=== PATIENT | male | born 1995 | race Caucasian/White ===

== ENCOUNTER → 2019-10-05 10:54 | Outpatient (BNVA) | payer SELFPAY | PROVIDERS: Visit Provider Nurse Practitioner | DX: K62.5 Hemorrhage of anus and rectum (principal) | CPT/HCPCS: 85025 ==

== ENCOUNTER → 2019-10-22 11:51 | Outpatient (BNVA) | payer SELFPAY | PROVIDERS: Visit Provider Nurse Practitioner | DX: K62.5 Hemorrhage of anus and rectum (principal) | CPT/HCPCS: 82270 ==

== ENCOUNTER → 2019-11-11 16:55 | Outpatient (BNVA) | payer SELFPAY | PROVIDERS: PCP Nurse Practitioner; Visit Provider Nurse Practitioner | DX: J02.9 Acute pharyngitis, unspecified (principal) | CPT/HCPCS: 87071; 87880 ==

== ENCOUNTER → 2020-06-11 16:40 | Outpatient (BNVA) | payer OTHER, SELFPAY | PROVIDERS: PCP Nurse Practitioner; Visit Provider Nurse Practitioner Family | DX: Z20.828 Contact with and (suspected) exposure to other viral communicable diseases (principal) | CPT/HCPCS: 87635 ==

== ENCOUNTER → 2021-05-19 13:32 | Outpatient (BNVA) | payer OTHER, SELFPAY | PROVIDERS: PCP Nurse Practitioner; Visit Provider Nurse Practitioner Family | DX: Z20.822 Contact with and (suspected) exposure to COVID-19 (principal) | CPT/HCPCS: 87635 ==

== ENCOUNTER → 2021-07-22 13:09 | Outpatient (BNVA) | payer SELFPAY | PROVIDERS: PCP Nurse Practitioner; Visit Provider Nurse Practitioner Family | DX: Z20.822 Contact with and (suspected) exposure to COVID-19 (principal) | CPT/HCPCS: 87635 ==

== ENCOUNTER → 2021-09-25 10:17 | Outpatient (BNVA) | payer SELFPAY | PROVIDERS: PCP Nurse Practitioner; Visit Provider Nurse Practitioner Family | DX: R05.9 Cough, unspecified (principal); Z20.822 Contact with and (suspected) exposure to COVID-19; J06.9 Acute upper respiratory infection, unspecified | CPT/HCPCS: 87400; 87635; 87801 ==

== ENCOUNTER → 2022-05-20 15:22 | Outpatient (BNVA) | payer SELFPAY | PROVIDERS: PCP Nurse Practitioner; Visit Provider Nurse Practitioner | DX: Q45.3 Other congenital malformations of pancreas and pancreatic duct (principal) | CPT/HCPCS: 80053; 82150; 83690; 85025 ==

== ENCOUNTER 2022-09-16 19:18 | Emergency (ER) | payer SELFPAY ==
--- NOTE | 2022-09-16 19:20 | XRR_ITS ---
PROCEDURE INFORMATION: Exam: XR Chest Exam date and time: 09/16/2022 7:27 PM Age: 26 years old Clinical indication: Pain; Chest pressure; Additional info: Cp TECHNIQUE: Imaging protocol: Radiologic exam of the chest. Views: 1 view. COMPARISON: No relevant prior studies available. FINDINGS: Lungs: Lungs are clear bilaterally. Pleural spaces: No pleural effusion. No pneumothorax. Heart/Mediastinum: The cardiac silhouette is mildly enlarged. Moderate hiatal hernia. Mediastinal contours are unremarkable. Bones/joints: Unremarkable for age. XR/XR chest 1V portable [id number] IMPRESSION: 1. No acute cardiopulmonary process. 2. Moderate hiatal hernia. 3. Incidental/nonacute findings are listed in the report.
--- NOTE | 2022-09-16 19:20 | ECG_ITS ---
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
[2022-09-16 19:25] VITALS: BP 128/84; PULSE 73; RESP 20; TEMP 36.7; O2SAT 99; BMI 23.8
--- NOTE | 2022-09-16 19:36 | W.ED.CHESTPA ---
HPI - Chest Pain General: Chief Complaint: Chest Pain Stated Complaint: Chest Pains Time Seen by Provider: 09/16/22 19:35 Source: patient Mode of arrival: ambulatory Limitations: no limitations History of Present Illness: 26-year-old male states he has been having chest pain since 10 AM he states that sharp pain in his left chest worse with movement of his arm and with palpation he denies any shortness of breath denies any diaphoresis states pain is currently a 5 out of 10 he has had no vomiting no cough or fever. Associated symptoms: Deny abdominal pain, dyspnea, fever(s), nausea or vomiting Review of Systems Const: Denies: fever(s), chills, body aches or change in appetite Eyes: Denies: blurry vision or eye discomfort ENMT: Denies: throat pain or dental pain Card: Reports: chest pain Resp: Denies: dyspnea GI: Denies: abdominal pain, nausea, vomiting or diarrhea : Denies: dysuria Musc: Denies: neck pain or back pain Skin/Breast: Denies: rash Neuro: Denies: headache(s) Psych: Denies: depression Lewis/Lymph: Denies: easy bruising All/Imm: Denies: urticaria PFSH ED PFSH: Medical History Pancreas anomaly, congenital Surgical History No history of previous surgery Family History Other Diabetes Hypertension Stroke Denies family history of Cancer Social History Smoking and tobacco status: never smoked Second hand smoke exposure: Yes Smoking risk assessment/counseling performed?: No Alcohol intake: never Desire information about alcohol rehabilitation?: No Counseling given: No Desire information about substance/drug rehabilitation?: No Counseling given: No Adopted: No Caregiver/support person: No Lives independently: Yes Household members: family Housing: House Marital status: Single Number of children: 0 service: No Current occupational status: employed Pets and animals: Yes Pets & animals: cat(s) and dog(s) Current gender identity: Male Physical Exam Const: COMMON NORMALS: no acute distress, patient oriented x3 and healthy appearing HENMT: COMMON NORMALS: normocephalic and atraumatic HEAD & SCALP: normocephalic and atraumatic Eye: COMMON NORMALS: Equal, round and reactive pupils present and EOMs intact bilaterally PUPIL: Yes Equal, round and reactive pupils present Neck/C-Spine: COMMON NORMALS: full ROM and supple Chest: COMMONS NORMALS: normal inspection of the chest OTHER: point tender over left chest reproduces pain Resp: COMMON NORMALS: normal respiratory effort, No retractions, No use of accessory muscles and clear to auscultation bilaterally AUSCULTATION: clear to auscultation bilaterally Cardio: COMMON NORMALS: regular rate, regular rhythm and No murmurs present (Cardio) RATE: regular rate RHYTHM: regular rhythm GI: COMMON NORMALS: Normal to inspection, nondistended, normoactive bowel sounds present, Soft to palpation, non-tender and no masses PALPATION: Yes Soft to palpation Extremity: COMMON NORMALS: normal to inspection and full ROM Neuro: COMMON NORMALS: patient oriented x3, moves all extremities and no focal motor deficits Psych: COMMON NORMALS: mental status grossly normal, Normal thought process present and cooperative THOUGHT PROCESS: Normal thought process present Skin: COMMON NORMALS: no rashes or lesions noted and no wounds GENERAL SKIN EXAM: no rashes or lesions noted Course Vital Signs: Vital signs: Vital Signs Temperature 98.0 F 09/16/22 19:25 Pulse Rate 77 09/16/22 20:00 Respiratory Rate 17 09/16/22 20:00 Blood Pressure 105/78 09/16/22 20:00 Pulse Oximetry 100 09/16/22 20:00 Oxygen Delivery Me thod 09/16/22 20:00 MDM - Chest Pain Medical Decision Making Patient presents for chest pain is likely chest wall pain EKG x-ray and blood work are all normal we will place him on Naprosyn he is stable for discharge he is to follow-up his PCP and return if worsening he understands agrees to plan. Lab Data 09/16/22 19:50 09/16/22 19:50 Radiology Impressions Chest X-Ray 09/16/22 19:20 IMPRESSION: 1. No acute cardiopulmonary process. 2. Moderate hiatal hernia. 3. Incidental/nonacute findings are listed in the report. Laboratory Results WBC 6.5 10^3/uL (4.0-10.0) 09/16/22 19:50 RBC 4.70 10^6/uL (4.1-5.3) 09/16/22 19:50 Hgb 13.5 g/dL (11.7-16.6) 09/16/22 19:50 Hct 41.8 % (42.0-52.0) L 09/16/22 19:50 MCV 88.9 fl (80-94) 09/16/22 19:50 MCH 28.7 pg (28.0-34.0) 09/16/22 19:50 MCHC 32.3 g/dL (30.0-36.0) 09/16/22 19:50 RDW 13.7 % (12.1-15.1) 09/16/22 19:50 Plt Count 282 10^3/cmm (130-400) 09/16/22 19:50 MPV 11.0 fL (7.4-10.4) H 09/16/22 19:50 Neut % (Auto) 58.7 % 09/16/22 19:50 Lymph % (Auto) 30.5 % 09/16/22 19:50 Douglas % (Auto) 9.5 % 09/16/22 19:50 Eos % (Auto) 0.6 % 09/16/22 19:50 Baso % (Auto) 0.5 % 09/16/22 19:50 Neut # (Auto) 3.79 10^3/uL (1.8-7.7) 09/16/22 19:50 Lymph # (Auto) 2.0 10^3/uL (0.8-4.8) 09/16/22 19:50 Douglas # (Auto) 0.6 10^3/uL (0.2-0.9) 09/16/22 19:50 Eos # (Auto) 0.0 10^3/uL (0.0-0.8) 09/16/22 19:50 Baso # (Auto) 0.0 10^3/uL (0.0-0.1) 09/16/22 19:50 Nucleated RBC % (auto) 0 % 09/16/22 19:50 Nucleated RBCs # 0.0 /100WBC 09/16/22 19:50 Sodium 139 mmol/L (136-145) 09/16/22 19:50 Potassium 4.3 mmol/L (3.5-5.1) 09/16/22 19:50 Chloride 102 mmol/L (98-107) 09/16/22 19:50 Carbon Dioxide 27 mmol/L (22-29) 09/16/22 19:50 Anion Gap 14.3 (5-19) 09/16/22 19:50 BUN 13 mg/dL (6-20) 09/16/22 19:50 Creatinine 0.8 mg/dL (0.7-1.2) 09/16/22 19:50 GFR Calculation 116.0 mL/min (90-130) 09/16/22 19:50 Glucose 95 mg/dL (65-115) 09/16/22 19:50 Calculated Osmolality 288 mOsm/kg (285-295) 09/16/22 19:50 Calcium 9.6 mg/dL (8.5-10.5) 09/16/22 19:50 Total Bilirubin 0.4 mg/dL (0.15-1.2) 09/16/22 19:50 AST 10 U/L (0-40) 09/16/22 19:50 ALT 11 U/L (0-41) 09/16/22 19:50 Alkaline Phosphatase 80 U/L (40-130) 09/16/22 19:50 Total Protein 7.9 g/dL (6.6-8.7) 09/16/22 19:50 Albumin 4.7 g/dL (3.5-5.2) 09/16/22 19:50 Globulin 3.2 g/dL (1.3-4.6) 09/16/22 19:50 EKG Data EKG 1: I personally reviewed and interpreted this EKG as follows: EKG interpretation date: 09/16/22 EKG interpretation time: 19:33 Interpretation: nsr hr [address] or twave abnormalities qrs 99 qtc 367 Discharge Plan Discharge Patient Disposition: Home Clinical Impression: Chest pain Condition: Stable Prescriptions: New Naprosyn 500 mg tablet 500 mg PO BID PRN (Reason: pain) Qty: 20 0RF Discharge Orders: Discharge ED (Routine); Ordered 09/16/22 Ordered By: Jake Barros Referrals: Velasquez Barnett, CHAIRMAN AND CEO-C [Primary Care Provider] - 1-3 days Discharge Diet: Advance as tolerated Discharge Activity: Resume usual activity Patient Instructions: Chest Pain (ED) Coding Level of Care Code ED Technical Services Consultant for Debbie Zhou
[2022-09-16 19:59] LABS: Basophils % 0.5 %; Eosinophils % 0.6 %; Hematocrit 41.8 % (42.0-52.0); Hemoglobin 13.5 g/dL (11.7-16.6); Lymphocytes % 30.5 %; Mean Corpuscular HGB Conc 32.3 g/dL (30.0-36.0); Mean Corpuscular Hemoglobin 28.7 pg (28.0-34.0); Mean Corpuscular Volume 88.9 fl (80-94); Monocytes # 0.6 10^3/uL (0.2-0.9); Monocytes % 9.5 %; Neutrophils # 3.79 10^3/uL (1.8-7.7); Neutrophils % 58.7 %; Nucleated Red Blood Cells % 0 %; Platelet Count 282 10^3/cmm (130-400); Red Cell Distribution Width 13.7 % (12.1-15.1); White Blood Count 6.5 10^3/uL (4.0-10.0)
[2022-09-16 20:00] VITALS: BP 105/78; PULSE 77; RESP 17; O2SAT 100
[2022-09-16] MEDS: ketorolac 30 mg/mL INJ IVP (20:10)
[2022-09-16 20:14] LABS: Alanine Aminotransferase 11 U/L (0-41); Albumin Level 4.7 g/dL (3.5-5.2); Alkaline Phosphatase 80 U/L (40-130); Anion Gap 14.3 (5-19); Aspartate Amino Transferase 10 U/L (0-40); Blood Urea Nitrogen 13 mg/dL (6-20); Calcium 9.6 mg/dL (8.5-10.5); Carbon Dioxide 27 mmol/L (22-29); Chloride 102 mmol/L (98-107); Globulin 3.2 g/dL (1.3-4.6); Glucose 95 mg/dL (65-115); Osmolality Calculated 288 mOsm/kg (285-295); Potassium 4.3 mmol/L (3.5-5.1); Sodium 139 mmol/L (136-145); Total Bilirubin 0.4 mg/dL (0.15-1.2); Total Protein 7.9 g/dL (6.6-8.7)
[2022-09-16 20:20] VITALS: BP 112/91; PULSE 81; RESP 17; O2SAT 100
== END 2022-09-16 20:27 | disposition home or self-care (01) ==
PROVIDERS: Emergency Provider Emergency Medicine; PCP Nurse Practitioner
DX: R07.9 Chest pain, unspecified (principal); K44.9 Diaphragmatic hernia without obstruction or gangrene
CPT/HCPCS: 71045; 80053; 85025; 93005; 96374; 99285; J1885

== ENCOUNTER 2023-12-05 12:59 | Emergency (ER) | payer MEDICAID, SELFPAY ==
[2023-12-05 13:17] VITALS: BP 136/94; PULSE 99; RESP 16; TEMP 36.9; O2SAT 99
--- NOTE | 2023-12-05 16:03 | W.ED.HA ---
Documented by User: ZORA Noel 12/05/23 16:16 HPI - Headache General: Chief Complaint: Headache Stated Complaint: Headache Time Seen by Provider: 12/05/23 16:03 Source: patient Mode of arrival: ambulatory Limitations: no limitations History of Present Illness: Patient is a 28-year-old male presents to ED today with complaint of headache over the past 3 to 4 days. Patient states he does have a chronic history of migraines but states he has never had a headache lasting longer than a day and has never had a headache that was not responsive to OTC analgesics. Patient states his headache today feels different than his typical headaches. He has not had any injury or trauma. He feels like headache is worse with light. He states when he gets up and walks around it seems to be worse and rates it at a 6?7/10. Seems to be better with rest. No neck pain. No fevers. He states he was concerned because he got sent home from work on Tuesday due to the headache and feeling dizzy and shaky and weak. Patient does wear glasses. 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 MD elicited complaint: headache Pertinent past history: migraines Onset (ago): day(s) Severity: moderate Pain scale (0-10): 6 Quality & Timing: sharp Exacerbating factors: sitting/standing Relieving factors: rest Associated symptoms: Deny chest pain, confusion, fever(s), malaise, nausea, pre-syncope, rash or syncope Treatments prior to arrival: acetaminophen, ibuprofen and migraine medication Review of Systems Const: Reports: chills; Denies: fever(s), body aches, fatigue or malaise Eyes: Reports: photophobia and other (states he needs new glasses); Denies: change in vision, blurry vision, floaters or seeing flashes ENMT: Denies: nasal discharge or nasal congestion Card: Denies: chest pain, palpitations, syncope or pre-syncope Resp: Denies: dyspnea GI: Denies: abdominal pain or nausea Musc: Denies: neck pain, back pain, extremity pain or joint pain Skin/Breast: Denies: rash Neuro: Reports: headache(s), weakness in extremities and dizziness; Denies: numbness in extremities, sensory changes, lack of coordination, difficulty walking, frequent falls, confusion, behavioral changes, Slurred speech present or seizure-like activity PFSH ED PFSH: Medical History Pancreas anomaly, congenital Surgical History No history of previous surgery Family History Other Diabetes Hypertension Stroke Denies family history of Cancer Social History Smoking and tobacco/nicotine status: never used tobacco/nicotine Second hand smoke exposure: Yes Alcohol intake: never Substance/Drug Use: never Adopted: No Caregiver/support person: No Lives independently: Yes Household members: family Housing: House Marital status: Single Number of children: 0 service: No Current occupational status: employed Pets and animals: Yes Pets & animals: cat(s) and dog(s) Do you think of yourself as: Straight/Heterosexual Current gender identity: Male Physical Exam Const: COMMON NORMALS: no acute distress, average body habitus, patient oriented x3, no limitations, healthy appearing, alert and well nourished HENMT: COMMON NORMALS: normocephalic and atraumatic HEAD & SCALP: normal to inspection, normocephalic and atraumatic FACE & SINUS: normal facial exam and sinuses nontender Eye: COMMON NORMALS: Equal, round and reactive pupils present and EOMs intact bilaterally GENERAL EYE: appearance normal, both eyes and all related structures and normal light reflex PUPIL: Yes Equal, round and reactive pupils present DIRECT OPHTHALMOSCOPY: Yes normal light reflex Neck/C-Spine: COMMON NORMALS: full ROM and no meningeal signs Cardio: COMMON NORMALS: regular rate and regular rhythm RATE: regular rate RHYTHM: regular rhythm Extremity: GENERAL: Yes normal exam except as noted Neuro: CIARA COMA SCALE: document GCS findings [place] coma scale eye opening: Spontaneous Ciara coma scale verbal response: Orientated [place] coma scale motor response: Obey commands [place] coma scale total score: 15 COMMON NORMALS: patient oriented x3, CN's II-XII intact bilaterally, moves all extremities, no focal motor deficits, no sensory deficits noted and gait normal SENSORIUM/ORIENTATION: Yes alert MENINGEAL SIGNS: Yes no meningeal signs Skin: COMMON NORMALS: no rashes or lesions noted GENERAL SKIN EXAM: no rashes or lesions noted Course Vital Signs: Vital signs: Vital Signs Temperature 98.4 F 12/05/23 13:17 Pulse Rate 77 12/05/23 16:39 Respiratory Rate 18 12/05/23 16:39 Blood Pressure 125/90 12/05/23 16:39 Pulse Oximetry 100 12/05/23 16:39 Oxygen Delivery Me thod Room Air 12/05/23 16:39 MDM - Headache Lab Data 12/05/23 16:38 12/05/23 16:[address] 12/05/23 16:10 IMPRESSION: 1. No acute intracranial abnormality. Laboratory Results WBC 3.86 10^3/uL (3.29-11.43) 12/05/23 16:38 RBC 4.74 10^6/uL (3.85-5.65) 12/05/23 16:38 Hgb 14.30 g/dL (11.27-16.99) 12/05/23 16:38 Hct 43.1 % (37-53) 12/05/23 16:38 MCV 90.9 fl (82-101) 12/05/23 16:38 MCH 30.2 pg (27-33) 12/05/23 16:38 MCHC 33.2 g/dL (30-55) 12/05/23 16:38 RDW 12.8 % (12.1-15.1) 12/05/23 16:38 Plt Count 241 10^3/cmm (157-399) 12/05/23 16:38 MPV 10.2 fL (7.4-10.4) 12/05/23 16:38 Neut % (Auto) 52.4 % 12/05/23 16:38 Lymph % (Auto) 28.2 % 12/05/23 16:38 [place] % (Auto) 17.6 % 12/05/23 16:38 Eos % (Auto) 1.0 % 12/05/23 16:38 Baso % (Auto) 0.3 % 12/05/23 16:38 Neut # (Auto) 2.02 10^3/uL (1.8-7.7) 12/05/23 16:38 Lymph # (Auto) 1.1 10^3/uL (0.8-4.8) 12/05/23 16:38 [place] # (Auto) 0.7 10^3/uL (0.2-0.9) 12/05/23 16:38 Eos # (Auto) 0.0 10^3/uL (0.0-0.8) 12/05/23 16:38 Baso # (Auto) 0.0 10^3/uL (0.0-0.1) 12/05/23 16:38 Nucleated RBC % (auto) 0 % 12/05/23 16:38 Nucleated RBCs # 0.0 /100WBC 12/05/23 16:38 Sodium 137 mmol/L (136-145) 12/05/23 16:38 Potassium 4.2 mmol/L (3.5-5.1) 12/05/23 16:38 Chloride 102 mmol/L (98-107) 12/05/23 16:38 Carbon Dioxide 26 mmol/L (22-29) 12/05/23 16:38 Anion Gap 13.2 (5-19) 12/05/23 16:38 BUN 15 mg/dL (6-20) 12/05/23 16:38 Creatinine 0.7 mg/dL (0.7-1.2) 12/05/23 16:38 GFR Calculation 133.3 mL/min (90-130) H 12/05/23 16:38 Glucose 87 mg/dL (65-115) 12/05/23 16:38 Calculated Osmolality 284 mOsm/kg (285-295) L 12/05/23 16:38 Calcium 9.0 mg/dL (8.5-10.5) 12/05/23 16:38 Total Bilirubin 0.2 mg/dL (0.15-1.2) 12/05/23 16:38 AST 42 U/L (0-40) H 12/05/23 16:38 ALT 80 U/L (0-41) H 12/05/23 16:38 Alkaline Phosphatase 124 U/L (40-130) 12/05/23 16:38 Total Protein 8.4 g/dL (6.6-8.7) 12/05/23 16:38 Albumin 4.4 g/dL (3.5-5.2) 12/05/23 16:38 Globulin 4.0 g/dL (1.3-4.6) 12/05/23 16:38 Discharge Plan Discharge Condition: Stable Prescriptions: No Action lidocaine [Hemorrhoidal Relief] 5 % cream 1 applic topical .5 times daily PRN sennosides [senna] 8.6 mg tablet 8.6 mg PO DAILY hydrocortisone [Procto-Med HC] 2.5 % cream with perineal applicator 1 applic MN DAILY PRN (Reason: hemorrhoids) Qty: 30 0RF Referrals: Velasquez Barnett FNP-C [Primary Care Provider] - Sign Out Sign Out Data: Patient Sign Out occurred on 12/05/23 at 17:05. Patient's care was discussed, and care was transferred from ZORA Noel to ZORA Moreno. Coding Level of Care Code ED Welfare Investigator for Chg Fwd Documented by User: ZORA Moreno 12/05/23 17:12 HPI - Headache General: Chief Complaint: Headache Stated Complaint: Headache Time Seen by Provider: 12/05/23 16:03 [facility] ED PFSH: Medical History Pancreas anomaly, congenital Surgical History No history of previous surgery Family History Other Diabetes Hypertension Stroke Denies family history of Cancer Social History Smoking and tobacco/nicotine status: never used tobacco/nicotine Second hand smoke exposure: Yes Alcohol intake: never Substance/Drug Use: never Adopted: No Caregiver/support person: No Lives independently: Yes Household members: family Housing: House Marital status: Single Number of children: 0 service: No Current occupational status: employed Pets and animals: Yes Pets & animals: cat(s) and dog(s) Do you think of yourself as: Straight/Heterosexual Current gender identity: Male Physical Exam Neuro: CIARA COMA SCALE: document GCS findings [place] coma scale total score: 15 Course Vital Signs: Vital signs: Vital Signs Temperature 98.4 F 12/05/23 13:17 Pulse Rate 77 12/05/23 16:39 Respiratory Rate 18 12/05/23 16:39 Blood Pressure 125/90 12/05/23 16:39 Pulse Oximetry 100 12/05/23 16:39 Oxygen Delivery Me thod Room Air 12/05/23 16:39 MDM - Headache Medical Decision Making Care of patient transferred to md by ZORA Noel. I did evaluate the patient myself, states that he feels a little shaky but overall better. I believe, after further investigation, that his migraine potentially induced by stress/psychosomatic reasoning, and I did inform him to follow-up/establish with a primary doctor for further evaluation. His head CT did not demonstrate any acute abnormalities, and lab work unremarkable overall. Patient states he is ready to go home, and reasons to return discussed. I did encourage him to increase his fluid intake, as dehydration could potentially could be a reason for his dizziness as he notes increased salt intake and decreased fluids. Lab Data 12/05/23 16:38 12/05/23 16:[address] 12/05/23 16:10 IMPRESSION: 1. No acute intracranial abnormality. Laboratory Results WBC 3.86 10^3/uL (3.29-11.43) 12/05/23 16:38 RBC 4.74 10^6/uL (3.85-5.65) 12/05/23 16:38 Hgb 14.30 g/dL (11.27-16.99) 12/05/23 16:38 Hct 43.1 % (37-53) 12/05/23 16:38 MCV 90.9 fl (82-101) 12/05/23 16:38 MCH 30.2 pg (27-33) 12/05/23 16:38 MCHC 33.2 g/dL (30-55) 12/05/23 16:38 RDW 12.8 % (12.1-15.1) 12/05/23 16:38 Plt Count 241 10^3/cmm (157-399) 12/05/23 16:38 MPV 10.2 fL (7.4-10.4) 12/05/23 16:38 Neut % (Auto) 52.4 % 12/05/23 16:38 Lymph % (Auto) 28.2 % 12/05/23 16:38 [place] % (Auto) 17.6 % 12/05/23 16:38 Eos % (Auto) 1.0 % 12/05/23 16:38 Baso % (Auto) 0.3 % 12/05/23 16:38 Neut # (Auto) 2.02 10^3/uL (1.8-7.7) 12/05/23 16:38 Lymph # (Auto) 1.1 10^3/uL (0.8-4.8) 12/05/23 16:38 [place] # (Auto) 0.7 10^3/uL (0.2-0.9) 12/05/23 16:38 Eos # (Auto) 0.0 10^3/uL (0.0-0.8) 12/05/23 16:38 Baso # (Auto) 0.0 10^3/uL (0.0-0.1) 12/05/23 16:38 Nucleated RBC % (auto) 0 % 12/05/23 16:38 Nucleated RBCs # 0.0 /100WBC 12/05/23 16:38 Sodium 137 mmol/L (136-145) 12/05/23 16:38 Potassium 4.2 mmol/L (3.5-5.1) 12/05/23 16:38 Chloride 102 mmol/L (98-107) 12/05/23 16:38 Carbon Dioxide 26 mmol/L (22-29) 12/05/23 16:38 Anion Gap 13.2 (5-19) 12/05/23 16:38 BUN 15 mg/dL (6-20) 12/05/23 16:38 Creatinine 0.7 mg/dL (0.7-1.2) 12/05/23 16:38 GFR Calculation 133.3 mL/min (90-130) H 12/05/23 16:38 Glucose 87 mg/dL (65-115) 12/05/23 16:38 Calculated Osmolality 284 mOsm/kg (285-295) L 12/05/23 16:38 Calcium 9.0 mg/dL (8.5-10.5) 12/05/23 16:38 Total Bilirubin 0.2 mg/dL (0.15-1.2) 12/05/23 16:38 AST 42 U/L (0-40) H 12/05/23 16:38 ALT 80 U/L (0-41) H 12/05/23 16:38 Alkaline Phosphatase 124 U/L (40-130) 12/05/23 16:38 Total Protein 8.4 g/dL (6.6-8.7) 12/05/23 16:38 Albumin 4.4 g/dL (3.5-5.2) 12/05/23 16:38 Globulin 4.0 g/dL (1.3-4.6) 12/05/23 16:38 All radiology interpretation(s) finalized by discharge Discharge Plan Discharge Condition: Stable Prescriptions: No Action lidocaine [Hemorrhoidal Relief] 5 % cream 1 applic topical .5 times daily PRN sennosides [senna] 8.6 mg tablet 8.6 mg PO DAILY hydrocortisone [Procto-Med HC] 2.5 % cream with perineal applicator 1 applic MN DAILY PRN (Reason: hemorrhoids) Qty: 30 0RF Referrals: Velasquez Barnett, BARGE CAPTAIN-C [Primary Care Provider] - Sign Out Sign Out Data: Patient Sign Out occurred on 12/05/23 at 17:05. Patient's care was discussed, and care was transferred from ZORA Noel to ZORA Moreno. Coding Level of Care Code ED Welfare Investigator for Debbie Zhou
--- NOTE | 2023-12-05 16:10 | CTR_ITS ---
PROCEDURE INFORMATION: Exam: CT Head Without Contrast Exam date and time: 12/05/2023 4:15 PM Age: 28 years old Clinical indication: Pain; Headache; Patient HX: Migraine since Tuesday morning. PT HX of migraines since he was a teenager but he says he has never had one last more than a day TECHNIQUE: Imaging protocol: Computed tomography of the head without contrast. Radiation optimization: All CT scans at this facility use at least one of these dose optimization techniques: automated exposure control; mA and/or kV adjustment per patient size (includes targeted exams where dose is matched to clinical indication); or iterative reconstruction. COMPARISON: No relevant prior studies available. RADIATION DOSE METRICS: Total DLP (mGy-cm): 997 FINDINGS: Brain: No evidence of intra-axial or extra-axial hemorrhage. No mass effect or midline shift. Curry-white differentiation is maintained. Basilar cisterns are patent. Cerebral ventricles: No hydrocephalus. Paranasal sinuses: The visualized paranasal sinuses are well aerated. Mastoid air cells: The visualized mastoids and middle ears are clear. Bones: Unremarkable. No acute fracture. Soft tissues: No gross soft tissue abnormality. CT/CT head wo con* [id number] IMPRESSION: 1. No acute intracranial abnormality.
[2023-12-05 16:39] VITALS: BP 125/90; PULSE 77; RESP 18; O2SAT 100
[2023-12-05] MEDS: ondansetron 2 mg/ML SDV 2 mL 4 MG IVP (16:43)
[2023-12-05] MEDS: ketorolac 60 mg/2 mL INJ 30 MG IVP (16:43)
[2023-12-05] MEDS: diphenhydrAMINE 50 mg/mL SDV 1mL IVP (16:43)
[2023-12-05 16:44] LABS: Basophils % 0.3 %; Hematocrit 43.1 % (37-53); Lymphocytes # 1.1 10^3/uL (0.8-4.8); Lymphocytes % 28.2 %; Mean Corpuscular HGB Conc 33.2 g/dL (30-55); Mean Corpuscular Hemoglobin 30.2 pg (27-33); Mean Corpuscular Volume 90.9 fl (82-101); Mean Platelet Volume 10.2 fL (7.4-10.4); Monocytes # 0.7 10^3/uL (0.2-0.9); Monocytes % 17.6 %; Neutrophils # 2.02 10^3/uL (1.8-7.7); Neutrophils % 52.4 %; Nucleated Red Blood Cells % 0 %; Platelet Count 241 10^3/cmm (157-399); Red Blood Count 4.74 10^6/uL (3.85-5.65); Red Cell Distribution Width 12.8 % (12.1-15.1); White Blood Count 3.86 10^3/uL (3.29-11.43)
[2023-12-05] MEDS: sodium chloride 0.9% 1,000 ML 999 ML IV (16:44)
[2023-12-05 17:03] LABS: Alanine Aminotransferase 80 U/L (0-41); Albumin Level 4.4 g/dL (3.5-5.2); Alkaline Phosphatase 124 U/L (40-130); Anion Gap 13.2 (5-19); Aspartate Amino Transferase 42 U/L (0-40); Blood Urea Nitrogen 15 mg/dL (6-20); Carbon Dioxide 26 mmol/L (22-29); Chloride 102 mmol/L (98-107); Glomerular Filtration Rate 133.3 mL/min (90-130); Glucose 87 mg/dL (65-115); Osmolality Calculated 284 mOsm/kg (285-295); Potassium 4.2 mmol/L (3.5-5.1); Sodium 137 mmol/L (136-145); Total Bilirubin 0.2 mg/dL (0.15-1.2); Total Protein 8.4 g/dL (6.6-8.7)
--- NOTE | 2023-12-05 17:28 | DCPLANNER ---
message sent for er f/u appt, pcp establishment.
[2023-12-05 17:30] VITALS: BP 127/80; PULSE 59; O2SAT 100
[2023-12-05 17:50] VITALS: BP 127/80; PULSE 63; O2SAT 99
== END 2023-12-05 17:51 | disposition home or self-care (01) ==
PROVIDERS: Physician Assistant; Emergency Provider Physician Assistant; PCP Nurse Practitioner
DX: R51.9 Headache, unspecified (principal); Z77.22 Contact with and (suspected) exposure to environmental tobacco smoke (acute) (chronic)
CPT/HCPCS: 70450; 80053; 85025; 96361; 96374; 96375; 99285; J1200; J1885; J2405; J7030

== ENCOUNTER 2024-02-07 11:47 | Emergency (ER) | payer MEDICAID, SELFPAY ==
--- NOTE | 2024-02-07 11:55 | XR_ITS ---
WS: [id number] RIGHT ANKLE: 3 VIEW(S) TECHNIQUE: AP, oblique(s) and lateral. HISTORY: injury COMPARISON: None available. Seen only on the AP projection is a possible avulsion fracture distal to the fibula at the talofibula r articulation. No joint effusion or widening of the ankle mortise. No significant degenerative changes at the joint spaces. Mild soft tissue swelling laterally. XR/XR ankle RT min 3V* [id number] IMPRESSION: 1. Possible tiny avulsion fracture distal to the fibula in the talofibular art iculation. Donor site is not evident. This may be external to the joint. For fu rther evaluation CT can be performed of the RIGHT ankle. 2. Soft tissue edema over the lateral malleolus.
[2024-02-07 12:06] VITALS: BP 127/89; PULSE 87; RESP 18; TEMP 36.7; O2SAT 99
--- NOTE | 2024-02-07 14:04 | ED_ITS ---
HPI - Extremity Injury (Lower) General: Chief Complaint: Extremity Injury, Lower Stated Complaint: Right ankle injury Time Seen by Provider: 02/07/24 12:46 Source: patient Mode of arrival: ambulatory Limitations: no limitations History of Present Illness: Patient is a 28-year-old male who presents to ED today for evaluation of right ankle injury that he sustained just prior to arrival after he was walking down a hill with wet grass and accidentally slipped and fell. He states his right ankle inverted. He has pain and swelling to the lateral aspect of the ankle. No other injuries or complaints at this time. MD complaint: ankle injury Onset (ago): hour(s) Injury: Right: ankle Type of Injury: inversion Place: home Severity: moderate Relieving factors: immobilization Exacerbating factors: weight bearing, movement and palpation Context: walking Associated symptoms: Reports no associated symptoms Other symptoms: none Review of Systems Musc: Reports: joint pain (R ankle) and joint swelling (R ankle) [facility] ED PFSH: Medical History (Updated 02/07/24 @ 14:09 by ZORA Noel) Psychiatric care Pancreas anomaly, congenital Surgical History No history of previous surgery Family History Other Diabetes Hypertension Stroke Denies family history of Cancer Social History Smoking and tobacco/nicotine status: never used tobacco/nicotine Second hand smoke exposure: Yes Alcohol intake: never Substance/Drug Use: never Adopted: No Caregiver/support person: No Lives independently: Yes Household members: family Housing: House Marital status: Single Number of children: 0 service: No Current occupational status: employed Pets and animals: Yes Pets & animals: cat(s) and dog(s) Do you think of yourself as: Straight/Heterosexual Current gender identity: Male Physical Exam Const: COMMON NORMALS: no acute distress, average body habitus, no limitations, healthy appearing, alert and well nourished Extremity: GENERAL: Yes normal exam except as noted RIGHT LOWER EXTREMITY: Yes foot & digits (TTP/edema lateral R ankle) Right ankle: Yes neurovascular exam (normal) Neuro: COMMON NORMALS: moves all extremities, no focal motor deficits and no sensory deficits noted SENSORIUM/ORIENTATION: Yes alert Course Vital Signs: Vital signs: Vital Signs Temperature 98.1 F 02/07/24 12:06 Pulse Rate 87 02/07/24 12:06 Respiratory Rate 18 02/07/24 12:06 Blood Pressure 127/89 02/07/24 12:06 Pulse Oximetry 99 02/07/24 12:06 MDM - Extremity Injury (Lower) Medical Decision Making Small avulsion fx noted. Will splint/crutches/RICE therapy and have him follow up with orthopedics. Lab Data Radiology Impressions Ankle X-Ray 02/07/24 11:55 IMPRESSION: 1. Possible tiny avulsion fracture distal to the fibula in the talofibular articulation. Donor site is not evident. This may be external to the joint. For further evaluation CT can be performed of the RIGHT ankle. 2. Soft tissue edema over the lateral malleolus. All radiology interpretation(s) finalized by discharge Discharge Plan Discharge Patient Disposition: Home Clinical Impression: Avulsion fracture of lateral malleolus Qualifiers: Encounter type: initial encounter Fracture type: closed Laterality: right Qualified Code(s): S82.61XA - Displaced fracture of lateral malleolus of right fibula, initial encounter for closed fracture Condition: Stable Prescriptions: No Action lidocaine [Hemorrhoidal Relief] 5 % cream 1 applic topical .5 times daily PRN sennosides [senna] 8.6 mg tablet 8.6 mg PO DAILY hydrocortisone [Procto-Med HC] 2.5 % cream with perineal applicator 1 applic VA DAILY PRN (Reason: hemorrhoids) Qty: 30 0RF Discharge Orders: Discharge ED (Routine); Ordered 02/07/24 Ordered By: Nicole Whitlock Patient Instructions: Avulsion Fracture (ED) Activity Restrictions/Additional Instructions: As we discussed today in your splint and use your crutches to be nonweightbearing until your follow-up appointment with orthopedics. Case management should reach out to you this week to help set you up with this appointment. Coding Level of Care Code ED Film Sound Coordinator for Debbie Zhou
[2024-02-07 14:46] VITALS: BP 125/89; PULSE 62; RESP 14; O2SAT 100
--- NOTE | 2024-02-08 09:44 | DCPLANNER ---
Message sent to ortho for follow up lateral malleolus avulsion fx.
== END 2024-02-07 15:04 | disposition home or self-care (01) ==
PROVIDERS: Emergency Provider Physician Assistant
DX: S82.61XA Displaced fracture of lateral malleolus of right fibula, initial encounter for closed fracture (principal); Z77.22 Contact with and (suspected) exposure to environmental tobacco smoke (acute) (chronic); W01.0XXA Fall on same level from slipping, tripping and stumbling without subsequent striking against object, initial encounter
CPT/HCPCS: 29515; 73610; 99283; E0114

== ENCOUNTER 2024-04-04 10:45 | Day surgery (SDC) | payer MEDICAID, SELFPAY ==
[2024-04-04 11:10] VITALS: BP 117/87; PULSE 75; RESP 18; TEMP 36.4; O2SAT 94
[2024-04-04 11:13] VITALS: BMI 25.5
[2024-04-04] MEDS: sodium chloride 0.9% 1,000 ML 30 ML IV (11:15)
--- NOTE | 2024-04-04 11:32 | P.ANESASSM_ITS ---
Pre-Anesthetic Assessment Height/Weight: Height 5 ft 10 in Weight 178 lb Temp Pulse Resp BP Pulse Ox O2 Del Method 97.6 F 75 18 117/87 94 Room Air 04/04/24 11:10 04/04/24 11:10 04/04/24 11:10 04/04/24 11:10 04/04/24 11:10 04/04/24 11:10 Preop Diagnosis: GERD Operation Date: 04/04/24 12:00 Proposed Procedures p EGD - 03814, [id number], G0105, K92.2(Not Applicable) - Elias Hi DO s Colonoscopy(Not Applicable) - Elias Hi DO Was Beta Rita taken within 24 hours: N/A Was Clonidine taken within 24 hours: N/A Last intake: Intake Last Liquid Date 04/03/24 Last Liquid Time 22:30 Last Solid Date 04/02/24 Last Solid Time 19:00 Social No alcohol and No tobacco Exam alert, oriented x 3, clear to auscultation bilaterally and regular rate & rhythm Airway Submandibular: within normal limits Cervical ROM: within normal limits Mallampati: Class II Dentition: full Anesthetic Plan ASA status: 2 Anesthesia: MAC Other: No prior issues with anesthesia Completed bowel prep Recurrent abdominal pain Denies any pulmonary cardiac issues METs greater than 4 Plan for MAC anesthesia Medications/Allergies Home Medications Medication Instructions Recorded Confirmed Last Taken Type sennosides 8.6 mg tablet (senna) 8.6 mg PO DAILY 09/21/23 04/04/24 Unknown History ASO #1 ea 02/13/24 04/04/24 Unknown Rx fluoxetine 20 mg capsule (Prozac) 20 mg PO DAILY #30 caps 02/28/24 04/04/24 04/02/24 Rx trazodone 50 mg tablet 100 mg (2 x 50 mg) PO .HS PRN 02/28/24 04/04/24 04/02/24 Rx insomnia #60 tabs Allergies Allergy/AdvReac Type Severity Reaction Status Date / Time No Known Allergies Allergy Verified 04/04/24 11:06 [facility] Anesthesia Medical History Psychiatric care Pancreas anomaly, congenital Surgical History No history of previous surgery Family History Other Diabetes Hypertension Stroke Denies family history of Cancer Social History Smoking and tobacco/nicotine status: never used tobacco/nicotine Second hand smoke exposure: Yes Alcohol intake: never Substance/Drug Use: never Adopted: No Caregiver/support person: No Lives independently: Yes Household members: family Housing: House Marital status: Single Number of children: 0 service: No Current occupational status: employed Pets and animals: Yes Pets & animals: cat(s) and dog(s) Do you think of yourself as: Straight/Heterosexual Current gender identity: Male Data Anesthesia Cardiac Studies: No Data to Display
--- NOTE | 2024-04-04 13:27 | PM.HP ---
Providers/Chief Complaint Primary Care Provider: Cynthia Velazquez Chief Complaint: K92.2 History of Present Illness Shivam Landers is a 28 year old male Review of Systems General: Reports: 10 or more systems reviewed and unremarkable except in HPI and below Medications/Allergies Home Medications Medication Instructions Recorded Confirmed Last Taken Type sennosides 8.6 mg tablet (senna) 8.6 mg PO DAILY 09/21/23 04/04/24 Unknown History ASO #1 ea 02/13/24 04/04/24 Unknown Rx fluoxetine 20 mg capsule (Prozac) 20 mg PO DAILY #30 caps 02/28/24 04/04/24 04/02/24 Rx trazodone 50 mg tablet 100 mg (2 x 50 mg) PO .HS PRN 02/28/24 04/04/24 04/02/24 Rx insomnia #60 tabs Allergies Allergy/AdvReac Type Severity Reaction Status Date / Time No Known Allergies Allergy Verified 04/04/24 11:06 PFSH Acute PFSH: Medical History Psychiatric care Pancreas anomaly, congenital Surgical History No history of previous surgery Family History Other Diabetes Hypertension Stroke Denies family history of Cancer Social History Smoking and tobacco/nicotine status: never used tobacco/nicotine Second hand smoke exposure: Yes Alcohol intake: never Substance/Drug Use: never Adopted: No Caregiver/support person: No Lives independently: Yes Household members: family Housing: House Marital status: Single Number of children: 0 service: No Current occupational status: employed Pets and animals: Yes Pets & animals: cat(s) and dog(s) Do you think of yourself as: Straight/Heterosexual Current gender identity: Male Vitals/I&O/Wt Last Vital Signs Temp 97.6 F 04/04/24 11:10 Pulse 75 04/04/24 11:10 Resp 18 04/04/24 11:10 BP 117/87 04/04/24 11:10 Pulse Ox 94 04/04/24 11:10 O2 Del Method Room Air 04/04/24 11:10 Weight last 48 hrs Weight 178 lb A&P Assessment and plan (1) GI bleed: Plan EGD and colonoscopy Attestations Medical Necessity Statement*: Home Coding Level of Care Code Acute Code for Chg Fwd Diagnoses GI bleed K92.2
[2024-04-04 14:00] VITALS: BP 94/56; PULSE 63; RESP 18; TEMP 36.1; O2SAT 94
--- NOTE | 2024-04-04 14:02 | ANE.PACU2 ---
Inpatient post-anesthesia follow up: Airway intact: Yes Vital signs: Temperature 97.6 F Pulse Rate 75 Respiratory Rate 18 Blood Pressure 117/87 Pulse Oximetry 94 Oxygen Delivery Me thod Room Air Oxygen Flow Rate Fraction of Inspir ed Oxygen Hydration adequate: Yes Nausea and vomiting: No Pain level: 1 Mental status: Baseline
[2024-04-04 14:05] VITALS: BP 89/51; PULSE 63; RESP 18; O2SAT 92
== END 2024-04-04 14:35 | disposition home or self-care (01) ==
PROVIDERS: PCP Nurse Practitioner Family; Visit Provider Surgery
PROC: 0DJ08ZZ Inspection of Upper Intestinal Tract, Via Natural or Artificial Opening Endoscopic (ICD-10-PCS; CPT 43235; principal; 2024-04-04 12:00)
PROC: 0DJD8ZZ Inspection of Lower Intestinal Tract, Via Natural or Artificial Opening Endoscopic (ICD-10-PCS; CPT 45378; 2024-04-04 12:00)
DX: K29.70 Gastritis, unspecified, without bleeding (principal); D12.4 Benign neoplasm of descending colon; D12.5 Benign neoplasm of sigmoid colon
CPT/HCPCS: 43239; 45380; 45385; 88305; 88309; J2704; J3010; J7030

== ENCOUNTER 2024-05-30 08:15 | Outpatient (CLI) | payer MEDICAID, SELFPAY ==
--- NOTE | 2024-05-30 08:15 | USR_ITS ---
PROCEDURE INFORMATION: Exam: US Abdomen; Limited Exam date and time: 05/30/2024 8:30 AM Age: 28 years old Clinical indication: Abdominal pain; Generalized TECHNIQUE: Imaging protocol: Real time ultrasound of the abdomen with image documentation. Limited exam focused on the region of clinical interest. COMPARISON: No relevant prior studies available. FINDINGS: Liver: Liver appears unremarkable. Gallbladder: Gallbladder appears unremarkable. Biliary ducts: No biliary obstruction. Pancreas: Visualized pancreas appears unremarkable. Right kidney: Cursory reviews of the right kidney appear unremarkable. Aorta: Visualized aorta appears unremarkable. Inferior vena cava: Visualized inferior vena cava appears unremarkable. US/US gall bladder [id number] IMPRESSION: No acute findings.
== END 2024-05-30 08:18 | disposition home or self-care (01) ==
PROVIDERS: PCP Nurse Practitioner Family; Visit Provider Surgery
DX: R10.9 Unspecified abdominal pain (principal)
CPT/HCPCS: 76705

== ENCOUNTER 2024-06-25 09:53 | Outpatient (CLI) | payer MEDICAID, SELFPAY ==
--- NOTE | 2024-06-25 10:00 | NM_ITS ---
WS: [id number] NUCLEAR MEDICINE HIDA SCAN WITH GALLBLADDER EJECTION FRACTION HISTORY: abdominal pain COMPARISON: Gallbladder ultrasound 05/30/2024 TECHNIQUE: The patient was intravenously injected with 7.4 mCi of TC99m Mebrofenin. Immediate imaging over the right upper quadrant was followed by 5 minute image and additional images for a total of 60 minutes. Normal uptake of radiotracer throughout the liver. Activity identified in the gallbladder at 15 minutes and well distended by 60 minutes. Activity in the proximal small bowel was seen by 60 minutes. Good washout of the radiotracer from the liver by 60 minutes. The patient then drank 8 ounces of Ensure Plus. Ejection fraction at 60 minutes was 69%. Normal GB ej ection fraction is 35-75%. Post fatty meal symptoms: None. NM/NM hepatobiliary w phar* [id number] IMPRESSION: 1. Normal HIDA scan. 2. Normal gallbladder ejection fraction.
== END 2024-06-25 09:54 | disposition home or self-care (01) ==
PROVIDERS: PCP Nurse Practitioner Family; Visit Provider Surgery
DX: R10.9 Unspecified abdominal pain (principal)
CPT/HCPCS: 78227; A9537

== ENCOUNTER 2025-01-20 22:45 | Emergency (ER) | payer MEDICAID, SELFPAY ==
[2025-01-20 22:47] VITALS: BP 118/82; PULSE 99; RESP 16; TEMP 36.7; O2SAT 98; BMI 25.8
[2025-01-21] MEDS: tetanus-dipt-pertussis 0.5 mL SDV IM (01:31)
--- NOTE | 2025-01-21 01:43 | PC.NURSE ---
Wound cleansed with saline and betadine. patient tolerated well.
[2025-01-21 02:40] VITALS: BP 125/79; PULSE 73; RESP 16; O2SAT 98
--- NOTE | 2025-01-21 04:13 | W.ED.WOUNDLC ---
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 Initially bandaged at work and completed the shift until 20:30, but continued oozing at home, prompting ED visit. Reports pain and prior brisk bleeding; currently no active bleeding. Denies other injuries, numbness, or functional loss. First tetanus shot since age 18. No alcohol use; father had alcoholism, creating aversion to alcohol smell. Related Data Home Medications ?Medication ?Instructions ?Recorded ?Confirmed sennosides 8.6 mg tablet (senna) 8.6 mg PO DAILY 09/21/23 10/11/24 Previous Rx's ?Medication ?Instructions ?Recorded ASO #1 ea 02/13/24 pantoprazole 40 mg tablet,delayed 40 mg PO BID 6 weeks #84 tabs 04/04/24 release trazodone 100 mg tablet 200 mg (2 x 100 mg) PO .HS PRN 08/30/24 insomnia #60 tabs aripiprazole 2 mg tablet (Abilify) 2 mg PO DAILY #30 tabs 10/11/24 fluoxetine 40 mg capsule (Prozac) 40 mg PO DAILY #30 caps 10/11/24 Allergies Allergy/AdvReac Type Severity Reaction Status Date / Time prazosin AdvReac Intermediate Blood Verified 10/11/24 12:29 pressure raised a lot -160/80. PFSH ED PFSH: Medical History (Updated 01/21/25 @ 02:07 by Oracio Hannah MD) Tubular adenoma of colon Psychiatric care Pancreas anomaly, congenital Surgical History No history of previous surgery Family History Other Diabetes Hypertension Stroke Denies family history of Cancer Social History Smoking and tobacco/nicotine status: never used tobacco/nicotine Second hand smoke exposure: Yes Alcohol intake: never Substance/Drug Use: never Adopted: No Caregiver/support person: No Lives independently: Yes Household members: family Housing: House Marital status: Single Number of children: 0 service: No Current occupational status: employed Pets and animals: Yes Pets & animals: cat(s) and dog(s) Do you think of yourself as: Straight/Heterosexual Current gender identity: Male Physical Exam Extremity: OTHER: Superficial partial-thickness laceration <1 cm on distal pad of left index finger with two adjacent superficial abrasions; well-approximated edges, no active bleeding, no foreign body. Procedures Laceration Laceration 1: Site: hand Side (If applicable): left Size (cm): 0.4 Description: linear Depth: simple, single layer Pre-repair: wound explored and irrigated extensively Skin layer closed with: other (Tissue adhesive) Course Vital Signs: Vital signs: Vital Signs Temperature 98.1 F 01/20/25 22:47 Pulse Rate 73 01/21/25 02:40 Respiratory Rate 16 01/21/25 02:40 Blood Pressure 125/79 01/21/25 02:40 Pulse Oximetry 98 01/21/25 02:40 Oxygen Delivery Me thod Room Air 01/20/25 22:47 MDM - Wound/Laceration Medical Decision Making Wound was thoroughly cleansed and then closed using tissue adhesive. Tetanus updated. He will be discharged in stable condition with follow-up primary care as needed No radiology studies performed this visit Discharge Plan Discharge Patient Disposition: Home Clinical Impression: Laceration of left index finger Condition: Stable Prescriptions: No Action trazodone 100 mg tablet 200 mg PO .HS PRN (Reason: insomnia) Qty: 60 2RF aripiprazole [Abilify] 2 mg tablet 2 mg PO DAILY Qty: 30 2RF fluoxetine [Prozac] 40 mg capsule 40 mg PO DAILY Qty: 30 2RF sennosides [senna] 8.6 mg tablet 8.6 mg PO DAILY (DME) ASO See Rx Instructions .Route .MEDSUPPLY Qty: 1 0RF Rx Instructions: As directed pantoprazole 40 mg tablet,delayed release (DR/EC) 40 mg PO BID 42 Days Qty: 84 1RF Discharge Orders: Discharge ED (Routine); Ordered 01/21/25 Ordered By: Oracio Hannah Referrals: Cynthia Velazquez FNP [Primary Care Provider, Family Practice] Discharge Diet: Usual diet Discharge Activity: Increase activity as tolerated Patient Instructions: Laceration Without Closure (ED), Patient Portal & Jacinto Instructions Stand Alone Forms: Work/School Release Print Language: German Coding Level of Care Code ED Casualty Claims Supervisor for Debbie Zhou
== END 2025-01-21 02:44 | disposition home or self-care (01) ==
PROVIDERS: Emergency Provider Student in an Organized Health Care Education/Training Program; PCP Nurse Practitioner Family
DX: S61.211A Laceration without foreign body of left index finger without damage to nail, initial encounter (principal); W26.8XXA Contact with other sharp object(s), not elsewhere classified, initial encounter; Y93.G1 Activity, food preparation and clean up; Y92.511 Restaurant or cafe as the place of occurrence of the external cause; Y99.0 Civilian activity done for income or pay; Z79.899 Other long term (current) drug therapy; Z23 Encounter for immunization
CPT/HCPCS: 12001; 90471; 90715; 99283